=== PATIENT | male | born 1965 | race Two or more races ===

== ENCOUNTER 2023-05-22 11:25 | Inpatient (IN) | payer MEDICAID, OTHER ==
[~2023-05-22] VITALS: Ht 167.6 cm; Wt 71.9 kg
[2023-05-22] MEDS ORDERED: ESCI-8 PO (12:31)
[2023-05-22 12:42] LABS: COVID AG,FIA SOURCE NASAL SWAB
[2023-05-22 12:43] LABS: BASOPHILS % (AUTO) 0.7 % (0.0-2.0); EOSINOPHILS % (AUTO) 1.1 % (1.0-6.0); HEMATOCRIT 48.1 % (41-53); HEMOGLOBIN 16.2 g/dL (13.5-17.5); LYMPHOCYTES # (AUTO) 1.4 K/uL (1.0-4.8); MEAN CORPUSCULAR HEMOGLOBIN 30.2 pg (26.0-34.0); MEAN CORPUSCULAR HGB CONC 33.7 G/dL (31.0-37.0); MEAN CORPUSCULAR VOLUME 90 fL (80-100); MONOCYTES # (AUTO) 0.7 K/uL (0.1-1.0); MONOCYTES % (AUTO) 9.5 % (2.0-9.0); NEUTROPHILS # (AUTO) 4.9 K/uL (1.8-7.7); NEUTROPHILS % (AUTO) 68.7 % (40.0-70.0); PLATELET COUNT (AUTO) 238 K/uL (150-450); RED BLOOD CELL COUNT(AUTO) 5.37 MIL/uL (4.50-5.90); RED CELL DISTRIBUTION WIDTH 14.6 % (11.5-14.5); WHITE BLOOD COUNT (AUTO) 7.2 K/uL (4.5-11.0)
[2023-05-22 12:49] LABS: SARS-COV2 (COVID) ANTIGEN,FIA Negative (Negative)
[2023-05-22 12:51] LABS: ANION GAP 12 mmol/L (8-16); CARBON DIOXIDE 25 mmol/L (22-29); CHLORIDE 101 mmol/L (98-107); CREATININE 0.71 mg/dL (0.60-1.30); GLOMERULAR FILTR. RATE CALC > 60 mL/min (>60); GLUCOSE,RANDOM 96 mg/dL (70-110); POTASSIUM 3.7 mmol/L (3.5-5.1); SODIUM SERUM 138 mmol/L (136-145); UREA NITROGEN, BLOOD 16 mg/dL (7-18)
[2023-05-22 12:57] LABS: ALANINE AMINOTRANSFERASE 20 U/L (12-78); ALBUMIN 3.8 g/dL (3.4-5.0); ALKALINE PHOSPHATASE 91 U/L (46-116); ASPARTATE AMINOTRANSFERASE 26 U/L (15-37); BILIRUBIN,TOTAL 0.6 mg/dL (0.1-1.0); TOTAL PROTEIN, SERUM 7.6 g/dL (6.4-8.2)
[2023-05-22 13:35] LABS: ALCOHOL, BLOOD (SERUM) < 3 mg/dL (0-10)
[2023-05-22] MEDS ORDERED: ACETAMINOPHEN 325 MG TABLET PO ONE (13:45)
[2023-05-22 13:52] LABS: PH,URINE DRUG SCREEN 5.5 (5.0-8.0)
[2023-05-22 13:59] LABS: ALCOHOL, URINE DRUG SCREEN NEGATIVE (NEGATIVE); AMPHET/METH SCREEN,URINE NEGATIVE (NEGATIVE); BARBITURATE SCREEN, URINE NEGATIVE (NEGATIVE); BENZODIAZEPINES SCREEN,URINE NEGATIVE (NEGATIVE); CANNABINOID SCREEN,URINE NEGATIVE (NEGATIVE); COCAINE SCREEN,URINE NEGATIVE (NEGATIVE); METHADONE SCREEN, URINE NEGATIVE (NEGATIVE); OPIATE SCREEN,URINE NEGATIVE (NEGATIVE); PHENCYCLIDINE SCREEN,URINE NEGATIVE (NEGATIVE)
[2023-05-22] MEDS ORDERED: ZOLPIDEM TARTRATE 10 MG TABLET PO PRN (14:45)
[2023-05-22 17:59] VITALS: BP 120/80; PULSE 86; RESP 18; TEMP 97.1
[2023-05-22 22:44] VITALS: BP 95/68; PULSE 77; RESP 18; TEMP 98.1
[2023-05-23] MEDS: HALOPERIDOL 5 MG TABLET PO PRN (08:42)
[2023-05-23] MEDS: LORazepam 2 MG TABLET PO PRN (08:43)
[2023-05-23 10:36] VITALS: BP 133/83; PULSE 85; RESP 18; TEMP 98.3
[2023-05-23] MEDS: DIVALPROEX SODIUM 500 MG DR TABLET PO SCH (16:32)
[2023-05-23] MEDS: LITHIUM CARBONATE 300 MG CAPSULE PO SCH (16:32)
[2023-05-23 17:42] VITALS: RESP 18
[2023-05-23] MEDS ORDERED: MAGNESIUM HYDROXIDE SUSPENSION 30 ML UDCUP PO PRN (19:00)
[2023-05-23] MEDS ORDERED: DOCUSATE SODIUM 100 MG CAPSULE PO PRN (19:00)
[2023-05-23] MEDS ORDERED: OMEPRAZOLE 20 MG CAPSULE PO PRN (19:00)
[2023-05-23] MEDS ORDERED: ACETAMINOPHEN 325 MG TABLET PO PRN (19:00)
[2023-05-23] MEDS ORDERED: ONDANSETRON HCL 4 MG TABLET PO PRN (19:00)
[2023-05-23] MEDS ORDERED: LOPERAMIDE HCL 2 MG CAPSULE PO PRN (19:00)
[2023-05-23] MEDS ORDERED: BENZOCAINE/MENTHOL LOZENGE PO PRN (19:00)
[2023-05-23] MEDS ORDERED: CloNIDine HCL 0.1 MG TABLET PO PRN (19:00)
[2023-05-23] MEDS ORDERED: IBUPROFEN 600 MG TABLET PO PRN (19:00)
[2023-05-23] MEDS ORDERED: BACITRACIN 28 GM OINTMENT TP PRN (19:00)
[2023-05-23] MEDS ORDERED: ALBUTEROL SULFATE HFA 90 MCG/PUFF 8 GM INHALER IH PRN (19:00)
[2023-05-23] MEDS ORDERED: PETROLATUM,WHITE 28 GM JELLY TP PRN (19:00)
[2023-05-23 20:22] VITALS: BP 100/60; PULSE 84; RESP 17; TEMP 97.2
[2023-05-24] MEDS: DIVALPROEX SODIUM 500 MG DR TABLET PO SCH ×2 (08:26→16:09)
[2023-05-24] MEDS: LITHIUM CARBONATE 300 MG CAPSULE PO SCH ×2 (08:26→16:09)
[2023-05-24] MEDS: LORazepam 2 MG TABLET PO PRN (08:29)
[2023-05-24] MEDS: HALOPERIDOL 5 MG TABLET PO PRN (08:29)
[2023-05-24 09:13] VITALS: BP 99/74; PULSE 74; RESP 16; TEMP 97.1
[2023-05-24] MEDS: MAG HYDROX/AL HYDROX/SIMETH ES 30 ML SUSPENSION UDCUP PO PRN (17:57)
[2023-05-24 20:48] VITALS: BP 121/79; PULSE 70; RESP 18; TEMP 97.3
[2023-05-25 08:35] VITALS: BP 98/62; PULSE 93; RESP 18; TEMP 97.1
[2023-05-25] MEDS: DIVALPROEX SODIUM 500 MG DR TABLET PO SCH ×2 (08:35→16:03)
[2023-05-25] MEDS: LITHIUM CARBONATE 300 MG CAPSULE PO SCH ×2 (08:35→16:03)
[2023-05-25] MEDS: MAG HYDROX/AL HYDROX/SIMETH ES 30 ML SUSPENSION UDCUP PO PRN (09:32)
[2023-05-25] MEDS ORDERED: DIVA-112 PO (18:42)
[2023-05-25] MEDS ORDERED: LITH300C3 PO (18:42)
[2023-05-25 20:30] VITALS: BP 110/62; PULSE 77; RESP 19; TEMP 98
[2023-05-26 09:29] VITALS: BP 108/69; PULSE 80; RESP 18; TEMP 97.5
[2023-05-26] MEDS: DIVALPROEX SODIUM 500 MG DR TABLET PO SCH (09:29)
[2023-05-26] MEDS: LITHIUM CARBONATE 300 MG CAPSULE PO SCH (09:29)
[2023-05-26 10:29] VITALS: BP 111/73; PULSE 76; RESP 17; TEMP 98
== END 2023-05-26 14:00 | disposition home or self-care (01) | DRG 753 ==
LOC: EMS 11:37 → 3EI 17:09
PROVIDERS: ADMIT Psychiatry & Neurology Psychiatry; ATTEND Psychiatry & Neurology Psychiatry
DX: F31.9 Bipolar disorder, unspecified (principal); R45.851 Suicidal ideations; F12.10 Cannabis abuse, uncomplicated; F41.9 Anxiety disorder, unspecified; G89.29 Other chronic pain; M54.9 Dorsalgia, unspecified; Z20.822 Contact with and (suspected) exposure to COVID-19; M19.90 Unspecified osteoarthritis, unspecified site; F10.90 Alcohol use, unspecified, uncomplicated; G47.00 Insomnia, unspecified; K59.00 Constipation, unspecified; Z79.899 Other long term (current) drug therapy
CPT/HCPCS: 80053; 80307; 85025; 99285; G0480